=== PATIENT | female | born 1990 | race Caucasian/White ===

== ENCOUNTER 2019-10-25 15:10 | Emergency (ER) | payer OTHER ==
[2019-10-25] MEDS ORDERED: LORazepam 1 MG Tab PO ONE (16:35)
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
--- NOTE | 2019-10-25 17:30 | CRLCT ---
Indication: Head injury with loss of consciousness. Technique: Performed without IV contrast. Comparison: None available. Findings: A small focus of hyper attenuation is seen on the posterior aspect of the left sylvian fissure, compatible with subarachnoid hemorrhage. There is also some asymmetric hyperattenuation along the left side of the falx which could represent acute subdural blood. No parenchymal hemorrhage. No cortical edema or ischemia is identified. No intracranial mass effect. A slender benign lipoma is seen along the cephalad surface of the corpus callosum. The calvarium and skull base are unremarkable, with normal aeration of the visualized petrous temporal bones and paranasal sinuses on both sides. Impression: 1. A small apparent focus of subarachnoid hemorrhage is seen along the posterior aspect of the left sylvian fissure. 2. Probable thin acute subdural hematoma along the lateral aspect of the left leaf of the tentorium. 3. No parenchymal hemorrhage. No brain contusion is identified. 4. 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 Please note that all CT scans at this facility use dose modulation, iterative reconstruction, and/or weight-based dosing when appropriate to reduce radiation dose to as low as reasonably achievable. Dictated by Devonte De La Torre MD @ Oct 25 2019 5:20PM Signed by Dr. Devonte De La Torre @ Oct 25 2019 5:28PM
[2019-10-25] MEDS ORDERED: levETIRAcetam 1,000 MG in Sodium Chloride 0.9% 100 ML IV ONE (17:48)
== END 2019-10-25 19:11 ==
LOC: JP.ED 15:10
DX: S06.6X9A Traumatic subarachnoid hemorrhage with loss of consciousness of unspecified duration, initial encounter (principal); Z20.828 Contact with and (suspected) exposure to other viral communicable diseases; Y93.51 Activity, roller skating (inline) and skateboarding
CPT/HCPCS: 70450; 81025; 87635; 96365; 99285; A9270; J1953; J7050; U0002